=== PATIENT | male | born 1985 | race Caucasian/White ===

== ENCOUNTER 2019-10-27 08:11 | Emergency (ER) | payer MEDICARE, MEDICAID ==
[~2019-10-27] VITALS: Ht 175.3 cm; Wt 100.0 kg
[2019-10-27 09:00] VITALS: BP 137/88
[2019-10-27] MEDS ORDERED: DEXAMETHASONE SOD PHOS 20 MG/5 ML VIAL. IM ONE (09:30)
[2019-10-27] MEDS ORDERED: ORPHENADRINE CITRATE 60 MG/2 ML VIAL. IM ONE (09:30)
[2019-10-27] MEDS ORDERED: PRED20TA PO (09:45)
[2019-10-27] MEDS ORDERED: METH-38 PO (09:45)
--- NOTE | 2019-10-27 09:45 | PHYS DOC ---
Past Medical History Past Medical History: Schizophrenia, Other Additional Past Medical Histor: psychosis Past Surgical History: No Surgical History Smoking Status: Current Every Day Smoker Alcohol Use: None Drug Use: None General Adult EDM: Chief Complaint: Neck Pain HPI: HPI: Patient is a 34-year-old otherwise healthy male presents with several day history of neck pain. Patient states the pain radiates from his lower neck into his shoulder and at times down his arm. He has had some physical therapy without relief. He states he has not had an MRI scan. He does state the pain is worse with certain positions and started after he slept on it wrong. [] Review of Systems: Review of Systems: Constitutional: Denies fever or chills. [] Eyes: Denies change in visual acuity. [] HENT: Denies nasal congestion or sore throat. [] Respiratory: Denies cough or shortness of breath. [] Cardiovascular: Denies chest pain or edema. [] GI: Denies abdominal pain, nausea, vomiting, bloody stools or diarrhea. [] : Denies dysuria. [] Musculoskeletal: Per HPI [] Integument: Denies rash. [] Neurologic: Per HPI. [] Endocrine: Denies polyuria or polydipsia. [] Lymphatic: Denies swollen glands. [] Psychiatric: Denies depression or anxiety. [] Heart Score: Risk Factors: Risk Factors: DM, Current or recent (<one month) smoker, HTN, HLP, family history of CAD, obesity. Risk Scores: Score 0 - 3: 2.5% MACE over next 6 weeks - Discharge Home Score 4 - 6: 20.3% MACE over next 6 weeks - Admit for Clinical Observation Score 7 - 10: 72.7% MACE over next 6 weeks - Early Invasive Strategies Current Medications: Current Medications Medications (Trade) Dose Ordered Sig/Argelia Start Time Stop Time Status Last Admin Dose Admin Dexamethasone Sodium Phosphate (Decadron) 10 mg 1X ONCE 10/27/19 09:30 10/27/19 09:31 DC Orphenadrine Citrate (Norflex) 60 mg 1X ONCE 10/27/19 09:30 10/27/19 09:31 DC Allergies: Allergies: Allergies Coded Allergies Type Severity Reaction Last Updated Verified No Known Drug Allergies 02/24/14 No Physical Exam: PE: Constitutional: Well developed, well nourished, mild distress, non-toxic appearance. [] HENT: Normocephalic, atraumatic, bilateral external ears normal, oropharynx moist, no oral exudates, nose normal. [] Eyes: PERRLA, EOMI, conjunctiva normal, no discharge. [] Neck: Decreased range of motion secondary to pain worsening of symptoms with axial compression and side bending to the left. [] Cardiovascular:Heart rate regular rhythm, no murmur [] Lungs & Thorax: Bilateral breath sounds clear to auscultation [] Abdomen: Bowel sounds normal, soft, no tenderness, no masses, no pulsatile masses. [] Skin: Warm, dry, no erythema, no rash. [] Back: No tenderness, no CVA tenderness. [] Extremities: No tenderness, no cyanosis, no clubbing, ROM intact, no edema. [] Neurologic: Alert and oriented X 3, normal motor function, normal sensory function, no focal deficits noted. [] Psychologic: Affect normal, judgement normal, mood normal. [] EKG: EKG: [] Radiology/Procedures: Radiology/Procedures: [] Course & Med Decision Making: Course & Med Decision Making Pertinent Labs and Imaging studies reviewed. (See chart for details) [ED course: Evaluation reveals a 34-year-old male with cervical radiculopathy. He was given Decadron and some muscle relaxer during his stay in the department. I started him on steroids for a few days to see if we can get this calm down. I did let him know that he would need to follow with his primary care physician and get an MRI scheduled if this does not quiet down in the very near future.] Geovannaon Disclaimer: Laura Disclaimer: This electronic medical record was generated, in whole or in part, using a voice recognition dictation system. Departure Departure Impression: Primary Impression: Cervical radiculopathy Disposition: 01 HOME, SELF-CARE Condition: IMPROVED Referrals: UNKNOWN PCP NAME (PCP) TIAGO URBANO MD, Dr. is a surgeon that you could see to have this further evaluated. He or his physician procurement assistant or nurse practitioner could see you in the office and order the MRI scan if your insurance allows for such. Patient Instructions: Cervical Radiculopathy Scripts Methocarbamol (ROBAXIN-750) 750 Mg Tablet 1 TAB PO TID, #30 TAB Prov: PENNY RODRIGUEZ DO 10/27/19 Prednisone (PREDNISONE) 20 Mg Tablet 3 TAB PO DAILY PRN for COUGH for 5 Days, #15 TAB Prov: PENNY RODRIGUEZ DO 10/27/19 Justicifation of Admission Dx: Justifications for Admission: Justification of Admission Dx: PENNY Daigle DO Oct 27, 2019 09:45
== END 2019-10-27 10:24 | disposition home or self-care (01) ==
LOC: ER 08:11
DX: M54.12 Radiculopathy, cervical region (principal); F20.9 Schizophrenia, unspecified; F17.200 Nicotine dependence, unspecified, uncomplicated
CPT/HCPCS: 96372; 99284; J1100; J2360

== ENCOUNTER 2021-03-08 11:59 | Emergency (ER) | payer MEDICARE, MEDICAID ==
[~2021-03-08] VITALS: Ht 175.3 cm; Wt 95.4 kg
[~2021-03-08 11:59] MED LIST: METH-38 PO; PRED20TA PO
[2021-03-08] MEDS ORDERED: IV NORMAL SALINE 1000ML BAG 1,000 ML IV ONE (12:45)
[2021-03-08] MEDS ORDERED: KETOROLAC 15 MG/ML VIAL. IVP ONE (12:45)
[2021-03-08] MEDS ORDERED: fentaNYL PF VIAL 100 MCG/2 ML VIAL IVP ONE (12:45)
[2021-03-08] MEDS ORDERED: DEXAMETHASONE SOD PHOS 4 MG/ML VIAL IVP ONE (12:45)
[2021-03-08] MEDS ORDERED: CLINDAMYCIN 600MG PREMIX 50 ML IV ONE (12:45)
[2021-03-08 13:54] LABS: BASO % 0 % (0-3); EOS # 0.3 x10^3/uL (0.0-0.7); EOS % 2 % (0-3); HEMATOCRIT 44.8 % (39.0-53.0); HEMOGLOBIN 15.6 g/dL (13.0-17.5); LYMPH # 2.4 x10^3/uL (1.0-4.8); LYMPH % 23 % (24-48); MEAN CORPUSCULAR HEMOGLOBIN 31 pg (25-35); MEAN CORPUSCULAR HGB CONC 35 g/dL (31-37); MEAN CORPUSCULAR VOLUME 90 fL (79-100); MONO # 0.7 x10^3/uL (0.0-1.1); MONO % 7 % (0-9); NEUT # 7.3 x10^3/uL (1.8-7.7); NEUT % 68 % (31-73); PLATELET COUNT 238 x10^3/uL (140-400); RED BLOOD COUNT 4.97 x10^6/uL (4.30-5.70); RED CELL DISTRIBUTION WIDTH 12.8 % (11.5-14.5); WHITE BLOOD COUNT 10.8 x10^3/uL (4.0-11.0)
[2021-03-08 14:02] LABS: CALCIUM 8.5 mg/dL (8.5-10.1); CREATININE 0.9 mg/dL (0.7-1.3); MAGNESIUM 1.8 mg/dL (1.8-2.4); POTASSIUM 3.2 mmol/L (3.5-5.1)
[2021-03-08] MEDS ORDERED: CONTRAST GIVEN. MC PRN (14:15)
[2021-03-08] MEDS ORDERED: IOHEXOL 300 MG/ML 100ML VIAL. IV ONE (14:45)
--- NOTE | 2021-03-08 14:56 | RAD ---
CT maxillofacial with contrast. HISTORY: Right mandibular swelling, cord indentation CT maxillofacial was done using 70 mL Omnipaque 300 contrast. There is soft tissue swelling on the ri ght more than the left. Visualized sinuses are clear throughout. Mastoids are normally aerated. A fac ial fracture is not identified. There is mild lucency about the root of the molar on the right side. A defined abscess is not identified. Parotid and submandibular glands are unremarkable. Right Submand ibular nodes are prominent probably reactive. There are cavities in multiple teeth. IMPRESSION: 1. Multiple cavities in multiple teeth. 2. Abscess about the root of molar on the right side. Mandibular and facial soft tissue swelling. 3. A defined abscess is not identified. 4. Sinuses are clear. PQRS Compliance Statement: One or more of the following individualized dose reduction techniques were utilized for this examinat ion: 1. Automated exposure control 2. Adjustment of the mA and/or kV according to patient size 3. Use of iterative reconstruction technique Electronically signed by: Lion Peterson MD (03/08/2021 2:53 PM) [facility]
[2021-03-08] MEDS ORDERED: POTASSIUM CHLORIDE 20 MEQ TABLET.ER. PO ONE (15:15)
[2021-03-08] MEDS ORDERED: PRED20TA PO (15:26)
[2021-03-08] MEDS ORDERED: HYDR-2761 PO (15:26)
[2021-03-08] MEDS ORDERED: CHLO15MO2 PO (15:26)
[2021-03-08] MEDS ORDERED: CLIN-94 PO (15:26)
--- NOTE | 2021-03-08 15:29 | PHYS DOC ---
Past Medical History Past Medical History: High Cholesterol, Schizophrenia, Other Additional Past Medical Histor: psychosis Past Surgical History: No Surgical History Smoking Status: Current Every Day Smoker Alcohol Use: None Drug Use: None General Adult EDM: Chief Complaint: DENTAL PROBLEM HPI: HPI: Patient is a 35-year-old male presents with report of right mandibular jaw swelling and pain which started this morning. Patient does report known poor dentition. Denies fever chills. Denies trauma. Review of Systems: Review of Systems: Constitutional: Denies fever or chills Eyes: Denies redness or eye pain HENT: Denies nasal congestion or sore throat Respiratory: Denies cough or shortness of breath Cardiovascular: Denies chest pain or palpitations GI: Denies abdominal pain, nausea, or vomiting : Denies dysuria or hematuria Musculoskeletal: Denies back pain or joint pain Integument: Denies rash or skin lesions Neurologic: Denies headache, focal weakness or sensory changes Complete systems were reviewed and found to be within normal limits, except as documented in this note. Heart Score: C/O Chest Pain: N/A Current Medications: Current Medications Medications (Trade) Dose Ordered Sig/Argelia Start Time Stop Time Status Last Admin Dose Admin Clindamycin Phosphate 50 ml @ 100 mls/hr 1X ONCE 03/08/21 12:45 03/08/21 13:14 DC 03/08/21 14:08 100 MLS/HR Dexamethasone Sodium Phosphate (Decadron) 10 mg 1X ONCE 03/08/21 12:45 03/08/21 12:46 DC 03/08/21 14:15 10 MG Fentanyl Citrate (Fentanyl 2ml Vial) 50 mcg 1X ONCE 03/08/21 12:45 03/08/21 12:46 DC 03/08/21 14:15 50 MCG Info (CONTRAST GIVEN -- Rx MONITORING) 1 each PRN DAILY PRN 03/08/21 14:15 03/10/21 14:14 Iohexol (Omnipaque 300 Mg/ml) 70 ml 1X ONCE 03/08/21 14:45 03/08/21 14:46 DC 03/08/21 14:22 70 ML Ketorolac Tromethamine (Toradol 15mg Vial) 15 mg 1X ONCE 03/08/21 12:45 03/08/21 12:46 DC 03/08/21 14:15 15 MG Sodium Chloride 1,000 ml @ 1,000 mls/hr 1X ONCE 03/08/21 12:45 03/08/21 13:44 DC 03/08/21 14:08 1,000 MLS/HR Allergies: Allergies: Allergies Coded Allergies Type Severity Reaction Last Updated Verified No Known Drug Allergies 02/24/14 No Physical Exam: PE: Constitutional: Well developed, well nourished, no acute distress, non-toxic appearance HENT: Normocephalic, atraumatic, poor dentition throughout, severe dental caries noted to right lower mandible, significant amount of edema noted to right mandible, no fluctuant drainable abscess appreciated on physical exam Eyes: Conjunctiva normal, no discharge Neck: Normal range of motion, no tenderness, supple Lungs & Thorax: No respiratory distress, equal chest rise and fall Skin: Warm, dry, no erythema, no rash Extremities: No tenderness, ROM intact, no edema Neurologic: Alert and oriented X 3, normal motor function, normal sensory function, no focal deficits noted Psychologic: Affect normal, judgment normal Current Patient Data: Labs: Laboratory Tests Test 03/08/21 13:30 White Blood Count 10.8 x10^3/uL (4.0-11.0) Red Blood Count 4.97 x10^6/uL (4.30-5.70) Hemoglobin 15.6 g/dL (13.0-17.5) Hematocrit 44.8 % (39.0-53.0) Mean Corpuscular Volume 90 fL (79-100) Mean Corpuscular Hemoglobin 31 pg (25-35) Mean Corpuscular Hemoglobin Concent 35 g/dL (31-37) Red Cell Distribution Width 12.8 % (11.5-14.5) Platelet Count 238 x10^3/uL (140-400) Neutrophils (%) (Auto) 68 % (31-73) Lymphocytes (%) (Auto) 23 % (24-48) L Monocytes (%) (Auto) 7 % (0-9) Eosinophils (%) (Auto) 2 % (0-3) Basophils (%) (Auto) 0 % (0-3) Neutrophils # (Auto) 7.3 x10^3/uL (1.8-7.7) Lymphocytes # (Auto) 2.4 x10^3/uL (1.0-4.8) Monocytes # (Auto) 0.7 x10^3/uL (0.0-1.1) Eosinophils # (Auto) 0.3 x10^3/uL (0.0-0.7) Basophils # (Auto) 0.0 x10^3/uL (0.0-0.2) Sodium Level 143 mmol/L (136-145) Potassium Level 3.2 mmol/L (3.5-5.1) L Chloride Level 105 mmol/L (98-107) Carbon Dioxide Level 28 mmol/L (21-32) Anion Gap 10 (6-14) Blood Urea Nitrogen 3 mg/dL (8-26) L Creatinine 0.9 mg/dL (0.7-1.3) Estimated GFR (Cockcroft-Gault) 95.0 Glucose Level 85 mg/dL (70-99) Lactic Acid Level 1.1 mmol/L (0.4-2.0) Calcium Level 8.5 mg/dL (8.5-10.1) Magnesium Level 1.8 mg/dL (1.8-2.4) Laboratory Tests 03/08/21 13:30 Laboratory Tests 03/08/21 13:30 Vital Signs: Vital Signs Date Time Temp Pulse Resp B/P (MAP) Pulse Ox O2 Delivery O2 Flow Rate FiO2 03/08/21 14:15 16 99 Room Air 03/08/21 12:20 98.1 78 153/84 (107) 98.1 EKG: EKG: [] Radiology/Procedures: Radiology/Procedures: PROCEDURE: CT MAXILLOFACIAL W/CONTRAST CT maxillofacial with contrast. HISTORY: Right mandibular swelling, cord indentation CT maxillofacial was done using 70 mL Omnipaque 300 contrast. There is soft tissue swelling on the right more than the left. Visualized sinuses are clear throughout. Mastoids are normally aerated. A facial fracture is not identified. There is mild lucency about the root of the molar on the right side. A defined abscess is not identified. Parotid and submandibular glands are unremarkable. Right Submandibular nodes are prominent probably reactive. There are cavities in multiple teeth. IMPRESSION: 1. Multiple cavities in multiple teeth. 2. Abscess about the root of molar on the right side. Mandibular and facial soft tissue swelling. 3. A defined abscess is not identified. 4. Sinuses are clear. PQRS Compliance Statement: One or more of the following individualized dose reduction techniques were utilized for this examination: 1. Automated exposure control 2. Adjustment of the mA and/or kV according to patient size 3. Use of iterative reconstruction technique Electronically signed by: Lion Peterson MD (03/08/2021 2:53 PM) [facility] Course & Med Decision Making: Course & Med Decision Making Pertinent Labs and Imaging studies reviewed. (See chart for details) Patient presents with right mandibular swelling with significant dental caries/poor dentition. No drainable abscess noted on physical exam. Symptomatic treatment provided with steroid. Empiric antibiotic initiated. Labs obtained and posted to chart. Hypokalemia noted. CT maxillofacial obtained without discrete drainable abscess noted. Patient does have some pe riapical abscesses. Hypokalemia addressed. Patient stable for discharge with outpatient follow-up with PCP/dentist. Dental resource list provided. Discussed findings and plan with patient and family, who acknowledge understanding and agreement. Laura Disclaimer: Laura Disclaimer: This electronic medical record was generated, in whole or in part, using a voice recognition dictation system. Departure Departure Impression: Primary Impression: Periapical abscess Additional Impressions: Dentalgia Dental caries Hypokalemia Disposition: HOME / SELF CARE / HOMELESS Condition: STABLE Referrals: NO PCP (PCP) Patient Instructions: Dental Abscess, Dental Caries, Toothache-Brief Additional Instructions: Please call and make an appointment to be seen by a dentist for further evaluation and management of your poor dentition. You may also take over the counter Ibuprofen for pain or discomfort. Scripts Hydrocodone Bit/Acetaminophen (HYDROCODONE-APAP 5-325 ) 1 Tab Tablet 0.5-1 TAB PO PRN Q6HRS PRN for PAIN, #10 TAB 0 Refills Prov: AUDREY GROSS DO 03/08/21 Prednisone (PREDNISONE) 20 Mg Tablet 2 TAB PO DAILY, #8 TAB Start this prescription tomorrow, 03/09/21 Prov: AUDREY GROSS DO 03/08/21 Chlorhexidine Gluconate (PERIDEX) 15 Ml Mouthwash 15 ML PO BID for Dental infection, #473 ML 0 Refills Prov: AUDREY GROSS DO 03/08/21 Clindamycin Hcl (CLINDAMYCIN HCL) 300 Mg Capsule 1 CAP PO TID for Infection for 7 Days, #21 CAP Prov: AUDREY GROSS DO 03/08/21 AUDREY GROSS DO Mar 08, 2021 15:29
[2021-03-08 15:37] VITALS: BP 158/82
== END 2021-03-08 15:55 | disposition home or self-care (01) ==
LOC: ER 11:59
DX: K04.7 Periapical abscess without sinus (principal); K02.9 Dental caries, unspecified; E87.6 Hypokalemia; E78.00 Pure hypercholesterolemia, unspecified; F20.9 Schizophrenia, unspecified; F17.200 Nicotine dependence, unspecified, uncomplicated
CPT/HCPCS: 36415; 70487; 80048; 83605; 83735; 85025; 87040; 96365; 96375; 99285; J1100; J1885; J3010; J3490; J7030; Q9967